=== PATIENT | male | born 1935 | race Caucasian/White ===

== ENCOUNTER 2018-02-26 21:26 | Emergency (ER) | payer OTHER ==
[~2018-02-26] VITALS: Ht 188 cm; Wt 77.1 kg
[2018-02-26 21:28] VITALS: Ht 188 cm; Wt 77.1 kg
[2018-02-26 23:29] LABS: BASOPHIL % 0.3 % (0-2); PLATELET COUNT 189 x10^3mcL (130-400)
[2018-02-26 23:36] LABS: ALBUMIN 3.7 g/dL (3.4-5.0); ALKALINE PHOSPHATASE 98 U/L (46-116); ALT/SGPT 34 U/L (16-63); AST/SGOT 25 U/L (15-37); BILIRUBIN TOTAL 0.74 mg/dL (0.20-1.00); CALCIUM 9.5 mg/dL (8.5-10.1); CARBON DIOXIDE 31.6 mmol/L (21-32); CHLORIDE SERUM 96 mmol/L (98-107); CREATININE SERUM 1.2 mg/dL (0.7-1.3); GLUCOSE SERUM 97 mg/dL (74-106); RED CELL DISTRIBUTION WIDTH 15.1 % (11.5-14.5); SODIUM SERUM 132 mmol/L (136-145); TOTAL PROTEIN, SERUM 7.4 g/dL (6.4-8.2)
[2018-02-26 23:40] LABS: POTASSIUM SERUM 2.9 mmol/L (3.5-5.1)
[2018-02-27 02:12] VITALS: BP 149/90
== END 2018-02-27 02:12 | disposition home or self-care (01) ==
LOC: ED 21:26
PROVIDERS: Emergency Medicine
DX: R60.0 Localized edema (principal); E87.6 Hypokalemia; E87.1 Hypo-osmolality and hyponatremia; I10 Essential (primary) hypertension
CPT/HCPCS: 36415; 83880; Q0092